=== PATIENT | male | born 1965 | race Caucasian/White ===

== ENCOUNTER 2018-06-23 14:00 | Outpatient (RCR) | payer MEDICAID, SELFPAY ==
--- NOTE | 2018-06-09 13:00 | IE_ITS ---
Date: June 09, 2018 Referring: Tyrell Gates MD M.D. Diagnosis: L shoulder and foot pain P.T. Diagnosis: SUBJECTIVE: History of Present Illness: Patient reports a multi year history of L shoulder pain of insidious onset. Has undergone 2 injections by his PCP with good results. Feels 70% improved compared to 8 weeks ago. Pain Ratin/10 currently Pain Location: Posterior aspect of L shoulder. He is R hand dominant. Also complaining of R heel pain. He has had orthotics in the past which have helped. Thinks his orthotics maybe breaking down. 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 Initially was having a lot of difficulty with any lifting, particularly out into an abduction position and pain with L sidelying positions. Reports he would like to try and work on this conservatively without doing alot of formal PT. We do discuss that this is a good likelihood, but if he isn not making significant gains, would recommend regular sessions, which he is in agreement with. Previous Treatment: 2 injections in the L shoulder and orthotics in the past year. Social: Lives independently in an apartment in [place], [place] Comorbidities: Patient sustained a back injury a year ago which he was treated for in this clinic. Falls in the last year: __X__ No ____Yes - How many? ____ - (if over 2, balance SM needs to be completed) Reported hospitalizations in the last year - __X__ No ____ Yes - Dates of admission/reason: Medications: None. Quality of Life: ____ Excellent __X__ Good ____ Fair ____ Poor Standardized Measures: DASH score: __20%__ OBJECTIVE: Posture: Mesomorphic body build with protracted scapula. Observation: (behavior, atrophy, skin color, etc.) No observable distress. Gait: Non-antalgic, WNL. Palpation: Mild discomfort with palpation anterior/posterior aspect of GH joint on the L. Painfree through the AC joint, painfree through supraspinatus fossa. Painfree through the teres minor, mild discomfort on plantar surface of the heel medially at plantar fascia attachment. Soft Tissue Length: 12 degrees of dorsiflexion R, 15 degrees dorsiflexion L with knees extended, dorsiflexion WNL with knee flexed actively. Hamstring length 75-80 degrees bilaterally, quad length WNL. ROM: Bilateral GH joint AROM flexion/abduction WNL with painful arc on the L. IR L3 compared to T9 on the R. ER WNL, T3 actively. Strength: 4-/5 L ER with mild pain, 4+/5 R, 5/5 IR bilaterally, 4-/5 abduction L with mild pain, 4/5 R painfree. Flexion 4/5 L mildly pain, 5/5 R painfree. Bicep/tricep 5/5 bilaterally. The patient is able to heel walk and toe walk independently. Special Tests: (+) Hawkin's Lion, (+) Neer, (-) drop arm, (-) Speed's, (-) Hornblower's, (-) belly press compression. Treatment: IE: [id number] Therapeutic procedures ([id number]). Instruction in a HEP focusing on some pec stretching, sleeper stretch, resisted ER strengthening insidelying and standing with theraband, also instructed in soleus and gastro stretches. Did fabricate accommodative orthotics for the patient incorporating a small scaphoid pad on the R and nothing on the L. We did discuss off the shelf orthotics, but did not have a size for him to try in the clinic, but will do so at next visit. Direct treatment time: 60 mins Total treatment time: 60 mins ASSESSMENT: Patient is a 52-year-old male, referred for PT services with the diagnosis of L shoulder pain and R foot pain. Patient presents with clinical signs and symptoms consistent with rotator cuff tendiniopathy on the L and mild plantar fasciitis on the R, as demonstrated by the following impairment level findings: impaired joint mobility, motor f unction, muscle performance and ROM associated with connective tissue dysfunction and localized inflammation. 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 Initially was having a lot of difficulty with any lifting, particularly out into an abduction position and pain with L sidelying positions. Patient is assessed as: __X__ Low 99937 ____ Moderate 48772 ____ High 24090 complexity, based on the following: History: (list): X See comorbidities and social history. Examination: (list): X See above for functional limitations and impairments. Presentation: X Stable . Evolving Unstable Decision-Making: X Low complexity Moderate complexity High complexity % Disability based on DASH __X__ Patient requires skilled PT intervention to remediate the above functional limitations to return to: __X__ Premorbid level of function Prognosis: ____ Excellent __X__ Good ____ Fair ____ Poor STG: __6__ weeks. 1: Tolerate full day use of orthotics without limitations. 2: Decrease heel pain by 75%. 3: Patient independent in a HEP. 4: Decrease shoulder pain by 50%. 5: Increase strength 1/2 grade or more throughout L shoulder. LTG: __12__ weeks. 1; Return to premorbid level of function. 2: Return to full, pain-free, functional mobility. 3: Independent with self-maintenance program. PLAN: See patient 1x a week every 2 weeks for progression of his HEP. Next visit will have progression for rotator cuff and scapular stabilization strengthening as well as trial some off the shelf orthotics. Will continue on that visit frequency unless we need to see him more regularly if not responding well to his current plan. Patient is in agreement with the above plan and will discharged when goals have been met. Thank you for this referral. Please do not hesitate to contact me with any questions or concerns regarding this patient's plan of care.
--- NOTE | 2018-06-23 14:00 | PTTR_ITS ---
DATE: 06/23/18 SUBJECTIVE: Jose states that his shoulder is feeling a little stronger. 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 Therapeutic procedures ([id number]). For progression of his HEP for GH joint, rotator cuff strengthening with green theraband for standing exercise, verbal and tactile cues given for proper scapular positioning. Also progress with some close chain partial push ups off counter. Also reviewed his sidelying ER for L arm. Actively his ROM is essentially full with minimal pain with impingement testing. Mild (+) empty can. Still some discomfort to the posterior cuff. Did review some self PRT techniques. Also issued patient fabricate orthotics and he also purchased a pair of off the shelf orthotics. Direct treatment time: 30 mins Total treatment time: 30 mins P: Follow up with him in 1-2 weeks for continuation of therapeutic exercises for strengthening rotator cuff and scapular stabilizers. MM/dl
== END 2018-07-07 23:59 | disposition home or self-care (01) ==
LOC: PT 14:00
PROVIDERS: PCP Family Medicine; Referring Provider Family Medicine; Visit Provider Family Medicine
DX: M25.512 Pain in left shoulder (principal); M65.812 Other synovitis and tenosynovitis, left shoulder; M79.671 Pain in right foot; M72.2 Plantar fascial fibromatosis
CPT/HCPCS: 97110; 97161

== ENCOUNTER 2019-11-30 12:44 | Emergency (ER) | payer MEDICAID, SELFPAY ==
[2019-11-30] VITALS (8 sets, daily range): BP systolic 124–131; BP diastolic 79–95; PULSE 51–57; RESP 16; TEMP 36.6; O2SAT 98–100
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
[2019-11-30] MEDS: Meclizine 25 MG TAB PO (13:33)
[2019-11-30] MEDS: Ibuprofen 800 MG TAB PO (13:33)
[2019-11-30] MEDS: Lidocaine 5% Patch 1 PATCH TP (13:34)
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
== END 2019-11-30 14:20 | disposition home or self-care (01) ==
PROVIDERS: Emergency Provider Student in an Organized Health Care Education/Training Program; PCP Family Medicine
DX: S83.92XA Sprain of unspecified site of left knee, initial encounter (principal); S06.0X0A Concussion without loss of consciousness, initial encounter; W22.8XXA Striking against or struck by other objects, initial encounter; Y93.49 Activity, other involving dancing and other rhythmic movements; R42 Dizziness and giddiness; M54.9 Dorsalgia, unspecified
CPT/HCPCS: 29505; 73562; 99284; L1810

== ENCOUNTER 2021-01-13 01:35 | Outpatient (CLI) | payer MEDICAID, SELFPAY ==
--- NOTE | 2021-01-13 14:55 | DI.RAD_ITS ---
EXAM: XR LUMBAR SPINE COMPLETE CLINICAL HISTORY: low back pain 40, M54.5, G89.29. TECHNIQUE: 2D digital imaging was performed. COMPARISON: No exams were available for comparison FINDINGS: There are 5 lumbar type vertebral bodies. There is mild straightening of the normal lordosis. No sp ondylolysis or spondylolisthesis is present. No acute fractures or subluxations. Disc space narrowi ng is seen at L1-L2 and L3-L4. Endplate osteophytes are seen at multiple levels of the lumbar spine. The bones are normally mineralized. IMPRESSION: Moderate degenerative changes in the lumbar spine. No acute fracture or subluxation. DATA REPOSITORY: RADIATION DOSE DELIVERED:
--- NOTE | 2021-01-13 14:56 | DI.RAD_ITS ---
EXAM: XR HIP RT COMPLETE AP PELVIS CLINICAL HISTORY: hip pain, rt, M25.559. TECHNIQUE: 2D digital imaging was performed. COMPARISON: No exams were available for comparison FINDINGS: BONES: No acute fracture is present. No bony destructive lesion is seen. JOINTS: No dislocation present. SOFT TISSUE: Normal. IMPRESSION: Unremarkable radiographs of the right hip. Unremarkable radiographs of the pelvis. DATA REPOSITORY: RADIATION DOSE DELIVERED:
== END 2021-01-13 01:55 ==
PROVIDERS: PCP Family Medicine; Visit Provider Emergency Medicine
DX: M25.551 Pain in right hip (principal); M54.5 Low back pain; G89.29 Other chronic pain; M51.36 Other intervertebral disc degeneration, lumbar region
CPT/HCPCS: 72110; 73502

== ENCOUNTER 2021-10-06 09:10 | Outpatient (REF) | payer MEDICAID, SELFPAY ==
[2021-10-07 17:15] LABS: COVID-19 RT-PCR UVMMC Result Negative (Negative)
== END 2021-10-06 09:11 | disposition home or self-care (01) ==
LOC: LBN 09:10
PROVIDERS: PCP Nurse Practitioner Family; Visit Provider Nurse Practitioner
DX: Z20.822 Contact with and (suspected) exposure to COVID-19 (principal); R05.8 Other specified cough
CPT/HCPCS: U0003

== ENCOUNTER 2022-04-19 04:43 | Outpatient (CLI) | payer MEDICAID, SELFPAY ==
[2022-04-19] MEDS: Inhaler, Assist Device 1 EACH MC (14:07)
[2022-04-19] MEDS: Albuterol HFA 18 GM 200 PUFF INH IH (14:07)
--- NOTE | 2022-04-20 15:47 | W.PFT ---
Date of service: 04/19/22 Time of Service: 13:02 Pulmonary Function Test Result Requesting Provider Berenice Alvarez Indications: Asthma Interpretation Spirometry: There is no airflow limitation. There is no significant bronchodilator response. Lung Volumes: Normal lung volumes. Diffusion Capacity: Normal diffusion. Airway Pressure: Normal airways resistance. Impression Normal pulmonary function testing. Clinical Correlation therefore is recommended.
== END 2022-04-19 04:44 | disposition home or self-care (01) ==
LOC: RT 04:43
PROVIDERS: PCP Nurse Practitioner Family; Visit Provider Nurse Practitioner
DX: J45.909 Unspecified asthma, uncomplicated (principal); R05.8 Other specified cough; R06.09 Other forms of dyspnea; F17.210 Nicotine dependence, cigarettes, uncomplicated
CPT/HCPCS: 94060; 94726; 94729

== ENCOUNTER 2022-07-27 08:31 | Outpatient (CLI) | payer MEDICAID, SELFPAY ==
[2022-07-27 13:05] LABS: CREATININE 0.8 mg/dL (0.70-1.30); Calculated LDL 79 mg/dL (<100); Cholesterol 191 mg/dL (<200); Estimated GFR 104.51 (mL/min/1.73m2); HDL Cholesterol 105 mg/dL (40-60); Triglyceride 36 mg/dL (<150)
== END 2022-07-27 08:32 | disposition home or self-care (01) ==
PROVIDERS: PCP Nurse Practitioner Family; Visit Provider Nurse Practitioner Family
DX: Z79.1 Long term (current) use of non-steroidal anti-inflammatories (NSAID) (principal); Z13.220 Encounter for screening for lipoid disorders; G89.29 Other chronic pain
CPT/HCPCS: 36415; 80061; 82565

== ENCOUNTER 2022-09-04 00:29 | Emergency (ER) | payer MEDICAID, SELFPAY ==
[2022-09-04] VITALS (22 sets, daily range): BP systolic 84–142; BP diastolic 42–98; PULSE 55–83; RESP 9–23; TEMP 36.6; O2SAT 97–99
--- NOTE | 2022-09-04 00:30 | DI.RAD_ITS ---
Exam(s) XR PORTABLE CHEST AP EXAM: XR PORTABLE CHEST AP CLINICAL HISTORY: chest pain TECHNIQUE: 2D digital imaging was performed of the chest. One image was obtained. An AP view was ob tained. COMPARISON: None. FINDINGS: MEDIASTINUM: Normal. HEART: Normal. PULMONARY VASCULATURE: Normal. LUNGS: Clear. PLEURAL SPACE: No pleural effusion or pneumothorax. BONE:Within normal limits for the patient's age. OTHER FINDINGS:Normal. IMPRESSION: No acute pulmonary findings. DATA REPOSITORY: RADIATION DOSE DELIVERED:
--- NOTE | 2022-09-04 00:30 | RT.EKG_ITS ---
APPROVED REPORT Exam: Resting ECG Reason for Exam: chest pain Patient Location: E HR:57 bpm ECG Measurements Heart Rate 57 AXIS MI 169 P 75 QRSd 94 QRS 57 QT 484 T 109 QTc 473 Conclusion Sinus bradycardia...rate< 60 Probable LVH with secondary repol abnrm...multiple LVH criteria ST elevation secondary to LVH...Multiple VCG criteria Abnormal T, probable ischemia, anterior leads...T <-0.50mV, V2-V4 STEMI Abnormal Electrocardiogram
[2022-09-04] MEDS: Tenecteplase 50 MG KIT 40 MG IVP (00:48)
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
[2022-09-04 00:58] LABS: Absolute Basophil Count 0.03 10^3/uL (0.0-0.2); Absolute Eosinophil Count 0.12 10^3/uL (0.0-0.7); Absolute Lymphocyte Count 0.96 10^3/uL (1.2-3.4); Absolute Monocyte Count 0.39 10^3/uL (0.1-0.8); Absolute Neutrophil Count 2.94 10^3/uL (1.2-6.7); Basophils % 0.7; Eosinophils % 2.7; HCT 36.8 % (40.0-50.0); HGB 12.9 g/dL (13.5-17.5); Lymphocytes % 21.6; MCH 32.5 pg (27.0-33.0); MCHC 35.1 % (32.0-36.0); MCV 93 fL (80-95); MPV 8.7 fL (8.0-11.0); Monocytes % 8.8; Neutrophils % 66.2; Platelet Count 277 10^3/uL (130-400); RBC 3.97 10^6/uL (4.36-5.78); RDW 12.3 % (11.8-14.1); WBC 4.44 10^3/uL (4.4-10.8)
[2022-09-04 01:12] LABS: PTT Activated 22.6 sec (21.0-27.5); Prothrombin Time 9.6 sec (9.3-11.0)
[2022-09-04] MEDS: Aspirin 325 MG TAB PO (01:15)
[2022-09-04 01:16] LABS: ALT 23 U/L (16-63); AST 30 U/L (15-37); Alkaline Phosphatase 60 U/L (46-116); BUN 8 mg/dL (7-18); Bilirubin, Total 0.4 mg/dL (0.2-1.0); CREATININE 0.8 mg/dL (0.70-1.30); Calcium 8.4 mg/dL (8.5-10.1); Chloride 95 mmol/L (98-107); Estimated GFR 104.51 (mL/min/1.73m2); Glucose 110 mg/dL (74-106); Potassium 3.6 mmol/L (3.5-5.1); Sodium 129 mmol/L (136-145); Total Protein 7.2 g/dL (6.4-8.2); Troponin I 155 ng/L (<or=60)
[2022-09-04] MEDS: nitroGLYcerin in D5W 50 MG/250 ML BTL IV (01:18)
[2022-09-04] MEDS: Clopidogrel 300 MG TAB PO (01:20)
[2022-09-04] MEDS: nitroGLYcerin 0.4 MG TAB SL (01:23)
--- NOTE | 2022-09-04 01:36 | DI.VRAD_ITS ---
PROCEDURE INFORMATION: Exam: XR Chest Exam date and time: 09/04/2022 12:45 AM Age: 56 years old Clinical indication: Other: Chest pain TECHNIQUE: Imaging protocol: Radiologic exam of the chest. Views: 1 view. COMPARISON: CR LEFT SHOULDER COMPLETE 02/06/2018 1:48 PM FINDINGS: Tubes, catheters and devices: Monitoring wires noted. Lungs: Unremarkable. No consolidation. Pulmonary vessels are not congested. Pleural spaces: Unremarkable. No pleural effusion. No pneumothorax. Heart/Mediastinum: Unremarkable. No cardiomegaly. Bones/joints: Unremarkable. IMPRESSION: No acute cardiopulmonary abnormality. Dictated and Authenticated by: Ike Burns MD. Ordering:BRITTANY Monroy MD
[2022-09-04 01:43] LABS: Source Nasal/Nares
[2022-09-04 02:15] LABS: COVID-19 PCR Negative (Negative)
--- NOTE | 2022-09-04 02:31 | NUR.NOTE ---
Nursing Note: pt arrives via private vehicle with partner. 8/10 CP that radiated down arms and into back. TNK, ASA, Heparin bolus and drip per protocol. NTG drip initiated and SL given resulting in BP<84/49, ntg stopped, NS bolus initiated BP recovered to same as pre ntg. Pt remained alert and oriented T/O ED admit, partner at bedside DHART here at 0150, care of pt transferrede
== END 2022-09-04 02:07 | disposition short-term general hospital (02) ==
PROVIDERS: Emergency Provider Student in an Organized Health Care Education/Training Program; PCP Nurse Practitioner Family
DX: I21.3 ST elevation (STEMI) myocardial infarction of unspecified site (principal); I95.9 Hypotension, unspecified; R07.9 Chest pain, unspecified
CPT/HCPCS: 80053; 87635; 93005; 96365; 96366; 96367; 96376; 99291; 71045; 83735; 84484; 85025; 85610; 85730; 93010; J3101

== ENCOUNTER 2022-09-21 08:53 | Outpatient (CLI) | payer MEDICAID, SELFPAY ==
--- NOTE | 2022-09-21 08:53 | RT.EKG_ITS ---
APPROVED REPORT Exam: Resting ECG Reason for Exam: mi Patient Location: O HR:65 bpm ECG Measurements Heart Rate 65 AXIS NV 166 P 80 QRSd 98 QRS 43 QT 428 T -39 QTc 445 Conclusion Sinus rhythm...normal P axis, V-rate 50- 99 Left ventricular hypertrophy...multiple voltage criteria Inferior infarct, age indeterminate...Q>35mS, T neg, II III aVF
== END 2022-09-21 08:54 | disposition home or self-care (01) ==
LOC: DI.CARD 08:54
PROVIDERS: PCP Nurse Practitioner Family; Visit Provider Internal Medicine Cardiovascular Disease
DX: I21.3 ST elevation (STEMI) myocardial infarction of unspecified site (principal); R94.31 Abnormal electrocardiogram [ECG] [EKG]; I25.2 Old myocardial infarction
CPT/HCPCS: 93010

== ENCOUNTER 2023-01-12 17:07 | Outpatient (CLI) | payer MEDICAID, SELFPAY ==
--- NOTE | 2023-01-12 06:00 | DI.RAD_ITS ---
Exam(s) XR PAIN CLINIC SACRIOILIAC 2V EXAM: XR PAIN CLINIC SACRIOILIAC 2V CLINICAL HISTORY: Dx: Sacroiliac joint dysfunction. TECHNIQUE: Fluoroscopy was provided for the referring physician for guidance with performing pain cl inic injection procedure. COMPARISON: No exams were available for comparison FINDINGS: Please see procedure note for details. Fluoro time: 21.9 seconds RADIATION DOSE DELIVERED: Ka,r=4.26 mGy
[2023-01-12 17:18] VITALS: BP 132/83; PULSE 76; RESP 20; TEMP 36.8; O2SAT 100
[2023-01-12] MEDS: Omnipaque 240 MG/ML 50 ML BTL IJ (17:55)
[2023-01-12] MEDS: methylPREDNISolone ACETATE 80 MG/ML VIAL IJ (17:56)
[2023-01-12 17:57] VITALS: BP 126/80; PULSE 79; RESP 18; O2SAT 98
--- NOTE | 2023-01-12 19:08 | PDOC.PAIN_ITS ---
Date of service: 01/12/23 Time of Service: 17:45 Pain Clinic Procedure Note Procedure Note Procedure Note: INTRA-ARTICULAR SI JOINT INJECTION Jose Gerardo Nairnia has been referred to the [facility] for intra- articular SI joint injection. COMMENTS: He was previously evaluation in our office. He has pain directly over the right sacroiliac joint. Dx: Sacroiliac joint dysfunction Pre-procedure pain VAS was 8/10. Patient was interviewed and the medical record reviewed. There were no medical, pharmacologic, radiographic or other structural contraindications to attempting fluoroscopically guided intra-articular SI joint injection. Risks and expected side effects as well as potential benefit of the procedure were reviewed and voiced concerns addressed. The printed consent form was signed and witnessed. Standard time-out procedure was performed. Patient was placed in the prone position on the fluoroscopy table and automated blood pressure cuff and pulse oximeter applied. The skin entry point for approaching the right SI joint was identified under the most advantageous fluoroscopic view and marked. Following thorough Chlorhexadine preparation of the skin and draping and 1% lidocaine infiltration of the skin entry point and subcutaneous tissues, a 22 gauge 3.5 spinal needle was placed under fluoroscopic guidance into the right SI joint was identified under the most advantageous fluoroscopic view and marked. Intra-articular placement was confirmed by a clear arthrogram resulting from the injection of 0.25ml Omnipaque 240, 1ml 1% lidocaine, and 40mg Depomedrol were injected intra-articularily with an initial reproduction of a significant component of the usual pain. Vital signs were stable throughout the procedure and were as recorded in the docflowsheet by the nursing staff. If given, dosages of intravenous drugs for anxiolysis and analgesia were documented in MAR. Follow up plans and appointments were discussed with the patient. Post proc edure instruction was given as documented in nursing documentation and having met discharge criteria, and was discharged from the [facility]. COMMENTS: Post-procedure pain VAS was 4/10. He will re-start his home exercises in 2 days. Segundo Barber DO, MPH [facility] CC: Bhanu Ibanez NP
== END 2023-01-12 17:08 | disposition home or self-care (01) ==
LOC: PC 17:07
PROVIDERS: PCP Nurse Practitioner Family; Visit Provider Preventive Medicine Occupational Medicine
DX: M53.3 Sacrococcygeal disorders, not elsewhere classified (principal)
CPT/HCPCS: 27096; 72200; J1040; Q9967

== ENCOUNTER 2023-04-23 18:13 | Emergency (ER) | payer MEDICAID, SELFPAY ==
[2023-04-23] VITALS (62 sets, daily range): BP systolic 81–131; BP diastolic 51–93; PULSE 68–106; RESP 11–22; TEMP 36.7; O2SAT 94–99
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
--- NOTE | 2023-04-23 18:48 | NUR.NOTE ---
Nursing Note: @ 1845 LIAN: Bracial BP 111/81- Ankle BP 124/93
[2023-04-23] MEDS: Amoxicillin 875/Clav. 125 TAB PO (19:30)
[2023-04-23] MEDS: oxyCODONE 5 MG TAB PO (19:35)
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
--- NOTE | 2023-04-23 20:48 | NUR.NOTE ---
Nursing Note: 2044 patients BP 80's/50's-60's, patient diaphoretic and dizzy. Provider aware.
[2023-04-23] MEDS: Omnipaque 350 MG/ML 100 ML BTL IJ (20:56)
[2023-04-23] MEDS: Normal Saline - Diluent 50 ML VIAL IJ (20:57)
[2023-04-23] MEDS: Omnipaque 350 MG/ML 50 ML BTL IJ (20:57)
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
[2023-04-23] MEDS: Normal Saline 1,000 ML 1000 ML IV (22:14)
[2023-04-23] MEDS: Normal Saline 50 ML (22:30)
[2023-04-23] MEDS: cefTRIAXone 1 GM VIAL IV (22:30)
[2023-04-24 00:31] VITALS: BP 128/89; PULSE 76; RESP 18; O2SAT 98
== END 2023-04-23 23:48 | disposition home or self-care (01) ==
PROVIDERS: Emergency Provider Emergency Medicine; PCP Nurse Practitioner Family
DX: S81.832A Puncture wound without foreign body, left lower leg, initial encounter (principal); W34.00XA Accidental discharge from unspecified firearms or gun, initial encounter
CPT/HCPCS: 36415; 73562; 73706; 96361; 96374; 99285; 73590; 99284; J0696; J3490; Q9967

== ENCOUNTER 2023-06-02 02:37 | Outpatient (CLI) | payer MEDICAID, SELFPAY ==
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
== END 2023-06-02 02:57 ==
LOC: DI 02:37
PROVIDERS: PCP Nurse Practitioner Family; Visit Provider Family Medicine
DX: W34.00XD Accidental discharge from unspecified firearms or gun, subsequent encounter (principal); S81.832D Puncture wound without foreign body, left lower leg, subsequent encounter; X58.XXXD Exposure to other specified factors, subsequent encounter
CPT/HCPCS: 73562

== ENCOUNTER → 2023-06-28 01:59 | Outpatient (CLI) | payer MEDICAID, SELFPAY ==
--- NOTE | 2023-06-28 | DI.US_ITS ---
APPROVED REPORT EXAM: Comprehensive 2D, Doppler, and color-flow Echocardiogram Spot Facer: [place] RDCS Indications: CAD w/ angina pectoris, ischemic TONGER, h/o PR 2021 Conclusion Normal left ventricular wall thickness and chamber size. Ejection fraction is 50 to 55%. There are no segmental wall motion abnormalities Normal right ventricular size and systolic function Both atria are normal in size Aortic valve is trileaflet with trace regurgitation Normal mitral valve with mild regurgitation Dilated aortic root and ascending aorta Wall motion Left Ventricle The left ventricle is normal size. The overall left ventricular systolic function appears normal. The re is normal left ventricular wall thickness. There are no segmental wall motion abnormalities There is no ventricular septal defect visualized. LVEF is 50-55%. Right Ventricle The right ventricle is normal size. Right ventricular systolic function is grossly normal. The RVSP i s 13.6 mmHg. Atria The left atrium size is normal. The right atrium size is normal. The interatrial septum is intact wit h no evidence for an atrial septal defect. Aortic Valve Aortic valve is trileaflet. There is no aortic valvular stenosis. Trace aortic regurgitation. Mitral Valve The mitral valve is normal in structure. No evidence of mitral valve stenosis. Mild mitral regurgitat ion. Tricuspid Valve The tricuspid valve is normal in structure. There is no tricuspid valve stenosis. Trace tricuspid reg urgitation. Pulmonic Valve The pulmonary valve is normal in structure. There is no pulmonic valvular stenosis. Trace pulmonic re gurgitation. Great Vessels Aortic root is moderately dilated. The ascending aorta is mildly dilated. Aortic arch is normal in ca liber. IVC is normal in size and collapses >50% with inspiration. Pericardium There is no pericardial effusion. 2D Dimensions Ao Root d 4.40 cm M: 3.1 - 3.7 RA Area A4C 15.89 cm2 Ao Asc Diam d 3.89 cm M: 2.6 - 3.4 M-Mode TAPSE 2.17 cm (M/F) >1.7 LV Diastology MV E' medial 0.067 (>0.07 m/s) E/A Ratio 1.0 LV E/e MED 8.93 (<14) MV E Vmax 0.60 (0.4-1.3 m/s) MV E' lateral 0.089 (>0.1 m/s) MV A Vmax 0.60 (0.4-1.3 m/s) LV E/e LAT 6.74 (<14) MV E/E' medial 8.93 MV E/E' lateral 6.74 MV (E/E' average) 7.68 Aortic Valve LVOT Vmax 1.03 m/s AoV Area Vmax 2.89 cm2 LVOT Peak Grad 4.3 mmHg LVOT Mean Grad 2.5 mmHg LVOT Diam s 2.20 cm AoV Vmax 1.36 m/s Velocity Ratio 0.76 AoV Peak Grad 7.4 mmHg LVOT SV 78.59 mL AoV Mean Grad 4.1 mmHg AoV Area VTI 2.58 cm2 Mitral Valve MV DT 203 (160-240 msec) MR Vmax 6.64 m/s MR VTI 2.380 m MR Peak Grad 176.1 mmHg MR Mean Grad 124.0 mmHg Pulmonary Valve PV Mean Grad 2.4 mmHg RVOT Peak Gr. 1.98 mmHg RVOT Mean Gr. 1.10 mmHg RVOT VTI 0.158 m RVOT Vmax 0.70 m/s Tricuspid Valve TR Peak Grad 10.5 mmHg TR Vmax 1.63 m/s RA Pressure 3.00 mmHg RVSP (TR) 13.6 mmHg
== END ==
PROVIDERS: PCP Nurse Practitioner Family; Visit Provider Physician Assistant
DX: I25.10 Atherosclerotic heart disease of native coronary artery without angina pectoris (principal)
CPT/HCPCS: 93306

== ENCOUNTER → 2023-07-21 01:07 | Outpatient (CLI) | payer MEDICAID, SELFPAY ==
--- NOTE | 2023-07-21 08:40 | DI.CT_ITS ---
Exam(s) CT THORAX CTA EXAM: CT THORAX CTA CLINICAL HISTORY: DILATED AORTA ON ECHOCARDIOGRAM,,CAD,I77.819. TECHNIQUE: Imaging Protocol: Axial CT angiography was performed with multi-slice acquisition and mu lti-planar reconstructions as well as axial, coronal and sagittal MIP reconstructions. CONTRAST MATERIAL: Intravenous: Omnipaque 350 Contrast volume:100 ml COMPARISON: CT CT LOWER EXTREMITY LT CTA from 04/23/2023 FINDINGS: Pulmonary Arteries: No evidence of filling defect to suggest pulmonary emboli. Tracheobronchial tree: Patent where visualized. Mediastinum and Mad[place]: No dominant adenopathy or fluid collection. Pulmonary parenchyma: No consolidation or dominant measurable mass. Pleura: No effusion or pneumothorax. Heart: The heart is not dilated. No coronary artery calcifications are seen. Aorta: Ascending aorta maximal dimension 4.4 cm proximally, just above the valve. Distal to this are a of the ascending aorta measures 3.8 cm. Descending aorta 2.7 cm.. No aneurysm. No dissection. No visible calcification at the valve. No significant calcification in the chest. Minimal calcific ation seen at the upper abdomen. Upper abdomen: Unremarkable. Bones: Unremarkable for age. Tubes, Catheters, and Lines: None IMPRESSION: Dilatation of the ascending aorta to 4.4 cm just above the level of the aortic valve. No significant atherosclerotic changes. RADIATION DOSE DELIVERED: 512mGy.cm Total DLP DATA REPOSITORY: All CT scans at this facility are submitted to the National Radiology Data Registry (NRDR) Dose Index Registry (DIR) with the [employer] (ACR). RADIATION OPTIMIZATION: All CT scans at this facility use at least one of these dose optimization te chniques: automated exposure control; mA and/or kV adjustment per patient size (includes targeted exa ms where dose is matched to clinical indication); or iterative reconstruction.
[2023-07-21] MEDS: Omnipaque 350 MG/ML 500 ML BTL-Imaging package 100 ML IJ (10:34)
[2023-07-21] MEDS: Normal Saline - Diluent 50 ML VIAL IJ (10:35)
== END ==
PROVIDERS: PCP Nurse Practitioner Family; Visit Provider Physician Assistant
DX: I77.810 Thoracic aortic ectasia (principal)
CPT/HCPCS: 71275

== ENCOUNTER 2024-09-04 03:26 | Outpatient (CLI) | payer MEDICAID, SELFPAY ==
[2024-09-04 12:32] LABS: Calculated LDL 59 mg/dL (<100); Cholesterol 137 mg/dL (<200); HDL Cholesterol 58 mg/dL (40-60); Triglyceride 103 mg/dL (<150)
[2024-09-04 14:04] LABS: Hemoglobin A1C 5.5 % (<5.7)
== END 2024-09-04 03:27 | disposition home or self-care (01) ==
LOC: LOS 03:27
PROVIDERS: PCP Nurse Practitioner Family; Visit Provider Nurse Practitioner Family
DX: Z13.220 Encounter for screening for lipoid disorders (principal); Z13.1 Encounter for screening for diabetes mellitus; Z12.5 Encounter for screening for malignant neoplasm of prostate
CPT/HCPCS: 36415; 80061; 84153; 83036

== ENCOUNTER 2025-02-13 02:04 | Outpatient (CLI) | payer MEDICAID, SELFPAY ==
[2025-02-13 12:16] LABS: Anion Gap 10.8 mmol/L (3-11); BUN 15 mg/dL (7-18); CO2 28.2 mmol/L (21.0-32.0); CREATININE 1.1 mg/dL (0.70-1.30); Calcium 9.1 mg/dL (8.5-10.1); Chloride 107 mmol/L (98-107); Estimated GFR 77.81 (mL/min/1.73m2); Glucose 90 mg/dL (74-106); Magnesium 1.9 mg/dL; Potassium 4.2 mmol/L (3.5-5.1); Sodium 146 mmol/L (136-145)
== END 2025-02-13 02:05 | disposition home or self-care (01) ==
PROVIDERS: PCP Nurse Practitioner Family; Visit Provider Physician Assistant
DX: I50.20 Unspecified systolic (congestive) heart failure (principal)
CPT/HCPCS: 36415; 80048; 83735

== ENCOUNTER 2025-03-15 01:20 | Outpatient (CLI) | payer MEDICAID, SELFPAY ==
[2025-03-15 12:39] LABS: Anion Gap 9.9 mmol/L (3-11); BUN 11 mg/dL (7-18); CO2 27.1 mmol/L (21.0-32.0); CREATININE 1.1 mg/dL (0.70-1.30); Calcium 9.3 mg/dL (8.5-10.1); Chloride 105 mmol/L (98-107); Estimated GFR 77.81 (mL/min/1.73m2); Glucose 98 mg/dL (74-106); Magnesium 1.9 mg/dL (1.8-2.4); Potassium 4.3 mmol/L (3.5-5.1); Sodium 142 mmol/L (136-145)
== END 2025-03-15 01:21 | disposition home or self-care (01) ==
PROVIDERS: PCP Nurse Practitioner Family; Visit Provider Physician Assistant
DX: I25.5 Ischemic cardiomyopathy (principal)
CPT/HCPCS: 36415; 80048; 83735

== ENCOUNTER 2025-05-03 00:52 | Outpatient (CLI) | payer MEDICAID, SELFPAY ==
[2025-05-03 12:27] LABS: Anion Gap 10.8 mmol/L (3-11); BUN 18 mg/dL (7-18); CO2 26.2 mmol/L (21.0-32.0); CREATININE 0.9 mg/dL (0.70-1.30); Calcium 9.2 mg/dL (8.5-10.1); Chloride 105 mmol/L (98-107); Glucose 85 mg/dL (74-106); Potassium 3.9 mmol/L (3.5-5.1); Sodium 142 mmol/L (136-145)
== END 2025-05-03 00:53 | disposition home or self-care (01) ==
PROVIDERS: PCP Nurse Practitioner Family; Visit Provider Physician Assistant
DX: I25.5 Ischemic cardiomyopathy (principal)
CPT/HCPCS: 36415; 80048

== ENCOUNTER 2025-06-04 20:38 | Emergency (ER) | payer MEDICAID, SELFPAY ==
[2025-06-04] VITALS (41 sets, daily range): BP systolic 84–132; BP diastolic 52–94; PULSE 66–112; RESP 11–26; TEMP 36.4; O2SAT 92–98
--- NOTE | 2025-06-04 20:30 | RT.EKG_ITS ---
APPROVED REPORT Exam: Resting ECG Reason for Exam: chest pain Patient Location: E HR:72 bpm ECG Measurements Heart Rate 72 AXIS AZ 192 P 44 QRSd 111 QRS -3 QT 398 T 35 QTc 436 Conclusion Sinus rhythm...normal P axis, V-rate 60- 99 Consider inferior infarct...Q >35mS in II III aVF Sinus rhythm, inferior Q wave. No significant change fron prior 09/21/22. WD
--- NOTE | 2025-06-04 21:00 | DI.RAD_ITS ---
Exam(s) XR PORTABLE CHEST AP EXAM: XR PORTABLE CHEST AP CLINICAL HISTORY: Chest pain TECHNIQUE: 2D digital imaging was performed. COMPARISON: CT CT THORAX CTA from 07/21/2023 FINDINGS: LUNGS: Clear. No pleural abnormality seen. HEART: Normal size. AORTA: Normal diameter. BONES: Unremarkable for age. Soft tissues: Unremarkable. IMPRESSION: No acute findings. DATA REPOSITORY: RADIATION DOSE DELIVERED:
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
[2025-06-04] MEDS: Normal Saline 1,000 ML 1000 ML IV ×2 (21:30→22:43)
[2025-06-04 21:33] LABS: Abs Immature Grans 0.03 10^3/uL (0.0-0.06); HCT 33.9 % (40.0-50.0); HGB 11.7 g/dL (13.5-17.5); Immature Grans % 0.4 %; MCH 31.6 pg (27.0-33.0); MCHC 34.5 % (32.0-36.0); MCV 92 fL (80-95); MPV 9.1 fL (8.0-11.0); Platelet Count 299 10^3/uL (130-400); RBC 3.70 10^6/uL (4.36-5.78); RDW 12.3 % (11.8-14.1); RDW-SD 41.1 fL; WBC 6.81 10^3/uL (4.4-10.8)
[2025-06-04 22:21] LABS: ALT 25 U/L (16-63); AST 14 U/L (15-37); Albumin 4.1 g/dL (3.4-5.0); Alkaline Phosphatase 79 U/L (46-116); Anion Gap 12.4 mmol/L (3-11); BUN 11 mg/dL (7-18); Bilirubin, Total 0.2 mg/dL (0.2-1.0); CO2 23.6 mmol/L (21.0-32.0); Calcium 9.5 mg/dL (8.5-10.1); Chloride 100 mmol/L (98-107); Estimated GFR 58.26 (mL/min/1.73m2); Glucose 133 mg/dL (74-106); Lipase 21 U/L (<78); Magnesium 2.3 mg/dL (1.8-2.4); Potassium 3.4 mmol/L (3.5-5.1); Sodium 136 mmol/L (136-145); Total Protein 7.7 g/dL (6.4-8.2); Troponin I 10 ng/L (<or=76)
--- NOTE | 2025-06-04 23:07 | DI.VRAD_ITS ---
PROCEDURE INFORMATION: Exam: XR Chest Exam date and time: 06/04/2025 10:30 PM Age: 59 years old Clinical indication: Other: Chest pain TECHNIQUE: Imaging protocol: Radiologic exam of the chest. Views: 1 view. COMPARISON: CT THORAX CTA 07/21/2023 8:34 AM FINDINGS: Lungs: Lungs are clear throughout with no mass or consolidation detected. Pleural spaces: No pneumothorax or pleural effusion detected. Heart/Mediastinum: Heart size is normal and vessel margins are sharply defined. Bones/joints: No acute osseous lesions are detected. IMPRESSION: No acute cardiopulmonary process detected. Dictated and Authenticated by: Ben Dennis MD. Orderin Dain Silverio MD
[2025-06-04 23:19] LABS: Troponin I 9 ng/L (<or=76)
[2025-06-05] VITALS (12 sets, daily range): BP systolic 74–105; BP diastolic 51–84; PULSE 67–81; RESP 10–21; O2SAT 90–96
--- NOTE | 2025-06-05 00:33 | W.EDPROG ---
Date of service: 06/05/25 Time of Service: 00:33 Medical Decision Making Patient was seen and assessed and treated by Dr. Davila. Please refer to HPI, physical exam, assessment and plan. Patient was plan for discharge as his workup was notably benign, blood pressure improved after fluids. At time of discharge his blood pressure was transitioning between 103/67 systolic to the high 90s systolic. MAP remained over 65 during the entire time. Patient was talkative, and showed no signs of acute distress, tachycardia, or altered mental status. Patient was requesting discharge home. Patient will be discharged. Patient appears notably stable, and shows no signs of septic shock clinically with altered mental status or tachycardia. He shows no evidence to suggest profound dehydration at this stage. Patient ambulates well without difficulty lightheadedness or syncope. Patient will be discharged. Discharge Plan Disposition Patient Disposition: Home Condition: Stable Discharge Details Clinical Impression: Dehydration, Alcohol intoxication, Chest pain Primary Care Provider: Bhanu Ibanez ED Provider: Nusrat Davila Home Meds and New Rx's Prescriptions: No Action ketoconazole 2 % cream 1 applic TP BID Qty: 30 3RF cetirizine [Zyrtec] 10 mg tablet 10 mg PO DAILY Qty: 90 3RF aspirin [Adult Aspirin Regimen] 81 mg tablet,delayed release (DR/EC) 81 mg PO DAILY Qty: 90 3RF albuterol sulfate [Ventolin HFA] 90 mcg/actuation HFA aerosol inhaler 2 puff inhalation Q6H PRN (Reason: shortness of breath or wheezing) Qty: 8.5 3RF metoprolol succinate 25 mg tablet extended release 24 hr 25 mg PO DAILY Qty: 90 3RF fluticasone propionate 50 mcg/actuation spray,suspension 2 spray NS DAILY Qty: 3 8RF tramadol 50 mg tablet 50 mg PO QHS PRN (Reason: pain) Qty: 30 2RF rosuvastatin 20 mg tablet 20 mg PO DAILY Qty: 90 3RF epinephrine [EpiPen 2-Johan] 0.3 mg/0.3 mL auto-injector 0.3 mg IM PRN Qty: 1 1RF fluticasone propion-salmeterol [Advair HFA] 115-21 mcg/actuation HFA aerosol inhaler 2 puff inhalation BID Qty: 12 3RF omeprazole 20 mg capsule,delayed release(/EC) 20 mg PO DAILY Qty: 90 3RF spironolactone 25 mg tablet 25 mg PO DAILY Patient Comments: TAKE 1 TABLET BY MOUTH DAILY Entresto 97-103 mg tablet 1 tab PO DAILY Patient Comments: TAKE 1 TABLET BY MOUTH TWICE DAILY furosemide 20 mg tablet 20 mg PO DAILY Patient Comments: TAKE 1 TABLET BY MOUTH DAILY Discharge Instructions Instructions: Dehydration, Adult (DC), Chest Pain (DC), Alcohol Intoxication ED Additional Instructions: Please increase your fluid intake at home. Make sure to eat during the day. Keep follow-up with cardiology. Return immediately with any new or worsening symptoms. Discharge Data Discharge Physician: Nusrat Davila
== END 2025-06-05 00:54 | disposition home or self-care (01) ==
PROVIDERS: Emergency Provider Emergency Medicine Emergency Medical Services; PCP Nurse Practitioner Family
DX: E86.0 Dehydration (principal); R07.9 Chest pain, unspecified; F10.920 Alcohol use, unspecified with intoxication, uncomplicated; R42 Dizziness and giddiness
CPT/HCPCS: 99285; 99283; 00123; 80053; 83690; 93005; 96360; 96361; 71045; 80320; 83735; 84484; 85025; 93010